=== PATIENT | female | born 1990 | race Caucasian/White ===

== ENCOUNTER → 2016-10-12 | Outpatient (CLI) | payer MEDICAID ==
[~2016-10-12] MED LIST: AC500T PO; CALC500T7 PO; PNV11TAB5 PO; RANI75TA21 PO
--- NOTE | 2016-10-12 16:22 | Diagnostic Imaging Report ---
INDICATION: Late care. FINDINGS: There is a single living intrauterine in cephalic presentation. Placenta is posterior and not low. CRISS is 16. heart rate is 153 beats for minute. measurements correspond to a gestational age of 22 weeks and 2 days. There are no gross anomalies seen. IMPRESSION: Single living intrauterine with estimated gestational age of 22 weeks 2 days +/- 2 weeks. Estimated date of delivery is 02/11/2017. Dictated by: Dictated on workstation # [id number]
== END ==
LOC: RAD 09:54
PROVIDERS: ATTEND Obstetrics & Gynecology
DX: O09.292 Supervision of pregnancy with other poor reproductive or obstetric history, second trimester (principal); Z72.0 Tobacco use; Z3A.22 22 weeks gestation of pregnancy
CPT/HCPCS: 76805

== ENCOUNTER → 2016-11-02 | Outpatient (CLI) | payer MEDICAID ==
[2016-11-02 12:47] LABS: BASOPHILS % (AUTO) 0 % (0-2); EOSINOPHILS # (AUTO) 0.1 10^3uL; EOSINOPHILS % (AUTO) 1 % (0-4); LYMPHOCYTES # (AUTO) 1.8 X10^3; MEAN CORPUSCULAR HEMOGLOBIN 30.6 PG (26.0-34.0); MEAN CORPUSCULAR HGB CONC 35.1 g/dL (31.0-37.0); MEAN CORPUSCULAR VOLUME 87 FL (80-100); MEAN PLATELET VOLUME 11.7 FL (6.0-9.5); MONOCYTES # (AUTO) 0.6 X10^3; MONOCYTES % (AUTO) 5 % (3-11); NEUTROPHILS # (AUTO) 8.1 X10^3; NEUTROPHILS % (AUTO) 76 % (51-67); PLATELET COUNT 138 10^3uL (150-450); WHITE BLOOD COUNT 10.66 10^3uL (4.0-11.0)
== END ==
LOC: LAB 10:50
PROVIDERS: ATTEND Obstetrics & Gynecology
DX: O09.292 Supervision of pregnancy with other poor reproductive or obstetric history, second trimester (principal); Z72.0 Tobacco use
CPT/HCPCS: 36415; 82947; 82950; 85025

== ENCOUNTER → 2016-11-15 | Outpatient (CLI) | payer MEDICAID | LOC: RAD 10:11 | PROVIDERS: ATTEND Obstetrics & Gynecology | DX: O09.293 Supervision of pregnancy with other poor reproductive or obstetric history, third trimester (principal); Z72.0 Tobacco use | CPT/HCPCS: 76805 ==

== ENCOUNTER 2016-12-14 19:49 | Outpatient (CLI) | payer MEDICAID ==
[~2016-12-14] VITALS: Ht 165.1 cm; Wt 80.0 kg
[2016-12-14 20:02] VITALS: BP 105/56
== END 2016-12-14 20:35 ==
LOC: EUOP 19:49 → OB 19:51 → EUOP 20:35
PROVIDERS: ATTEND Obstetrics & Gynecology
DX: O26.893 Other specified pregnancy related conditions, third trimester (principal); R10.84 Generalized abdominal pain; Z3A.30 30 weeks gestation of pregnancy
CPT/HCPCS: 99201

== ENCOUNTER → 2016-12-14 | Outpatient (CLI) | payer MEDICAID | LOC: EMS 19:50 | PROVIDERS: ATTEND Obstetrics & Gynecology | DX: O26.893 Other specified pregnancy related conditions, third trimester (principal); R10.13 Epigastric pain; R11.10 Vomiting, unspecified ==

== ENCOUNTER 2016-12-19 10:15 | Outpatient (CLI) | payer MEDICAID ==
[~2016-12-19] VITALS: Ht 165.1 cm; Wt 82.3 kg
== END 2016-12-19 12:05 | disposition home or self-care (01) ==
LOC: OBGOP 10:15 → OB 10:16 → OBGOP 12:05
PROVIDERS: ATTEND Obstetrics & Gynecology
DX: O09.293 Supervision of pregnancy with other poor reproductive or obstetric history, third trimester (principal); Z87.59 Personal history of other complications of pregnancy, childbirth and the puerperium; Z3A.31 31 weeks gestation of pregnancy
CPT/HCPCS: 59025; 76815

== ENCOUNTER 2016-12-26 10:51 | Outpatient (CLI) | payer MEDICAID ==
[~2016-12-26] VITALS: Ht 165.1 cm; Wt 81.6 kg
[2016-12-26 11:08] VITALS: BP 100/61
== END 2016-12-26 12:15 | disposition home or self-care (01) ==
LOC: EUOP 10:51 → OB 10:52 → EUOP 12:15
PROVIDERS: ATTEND Obstetrics & Gynecology
DX: Z34.83 Encounter for supervision of other normal pregnancy, third trimester (principal); Z3A.32 32 weeks gestation of pregnancy
CPT/HCPCS: 59025

== ENCOUNTER 2017-01-02 10:25 | Outpatient (CLI) | payer MEDICAID ==
[~2017-01-02] VITALS: Ht 165.1 cm; Wt 82.1 kg
[2017-01-02 11:00] VITALS: BP 118/59
== END 2017-01-02 11:00 | disposition home or self-care (01) ==
LOC: EUOP 10:25 → OB 10:26 → EUOP 11:00
PROVIDERS: ATTEND Obstetrics & Gynecology
DX: O09.293 Supervision of pregnancy with other poor reproductive or obstetric history, third trimester (principal); Z87.59 Personal history of other complications of pregnancy, childbirth and the puerperium; Z3A.33 33 weeks gestation of pregnancy
CPT/HCPCS: 59025

== ENCOUNTER → 2017-01-09 | Outpatient (CLI) | payer MEDICAID ==
--- NOTE | 2017-01-09 13:49 | Diagnostic Imaging Report ---
INDICATION: History of stillbirth. COMPARISON: 12/19/2016. Biophysical Profile Score: Movement: 2 Breathin Tone: 2 Fluid: 2 Total: 05/08 Heart Rate: 149 BPM Presentation is cephalic. Placenta is fundal. The CRISS was incompletely evaluated. IMPRESSION: Normal Biophysical Profile Score. Dictated by: Dictated on workstation # [id number]
== END ==
LOC: RAD 11:27
PROVIDERS: ATTEND Obstetrics & Gynecology
DX: Z87.59 Personal history of other complications of pregnancy, childbirth and the puerperium (principal)
CPT/HCPCS: 76815

== ENCOUNTER → 2017-01-16 | Outpatient (CLI) | payer MEDICAID ==
--- NOTE | 2017-01-16 14:04 | Diagnostic Imaging Report ---
INDICATION: History of stillbirth. Biophysical profile. FINDINGS: Real-time imaging shows good breathing with good gross body movement and normal tone. Amniotic fluid index is normal. The amniotic fluid index is 14 cm. heartbeat is 169 beats per minute during the exam. The placenta is fundal. The cervical length is 2.6 cm. IMPRESSION: Normal biophysical profile. Dictated by: Dictated on workstation # [id number]
== END ==
LOC: RAD 11:29
PROVIDERS: ATTEND Obstetrics & Gynecology
DX: Z87.59 Personal history of other complications of pregnancy, childbirth and the puerperium (principal); Z33.1 Pregnant state, incidental
CPT/HCPCS: 76805; 87653

== ENCOUNTER 2017-01-19 12:55 | Outpatient (CLI) | payer MEDICAID ==
[~2017-01-19] VITALS: Ht 165.1 cm; Wt 84.8 kg
[2017-01-19 13:53] LABS: BILIRUBIN,URINE Negative (Negative); CLARITY,URINE Clear; COLOR,URINE Yellow; GLUCOSE, URINE (UA) Negative (Negative); LEUKOCYTE ESTERASE ,URINE Negative (Negative); PH,URINE 6.5 (5.0 - 8.0); UROBILINOGEN,URINE 0.2 mg/dL (0.2-1.0)
[2017-01-19 14:00] VITALS: BP 109/67
--- NOTE | 2017-01-19 17:01 | Diagnostic Imaging Report ---
INDICATION: assessment. FINDINGS: PROCEDURE: OB ultrasound, limited, for biophysical profile scoring Single fetus is identified, currently in cephalic presentation. The cervical length is about 3.3 cm. No previa is identified. No abruption was identified. biophysical profile scoring demonstrated normal scoring for breathing motion, gross body movement, tone, and amniotic fluid. IMPRESSION: biophysical profile score of 8 out of 8. Dictated by: Dictated on workstation # [id number]
== END 2017-01-19 14:40 | disposition home or self-care (01) ==
LOC: OBGOP 12:55 → OB 12:57 → OBGOP 14:40
PROVIDERS: ATTEND Obstetrics & Gynecology
DX: O26.853 Spotting complicating pregnancy, third trimester (principal); Z3A.35 35 weeks gestation of pregnancy
CPT/HCPCS: 76819; 81003; G0463; 99202

== ENCOUNTER → 2017-01-24 | Outpatient (CLI) | payer MEDICAID ==
--- NOTE | 2017-01-25 09:11 | Diagnostic Imaging Report ---
US OB PREG, LATE (14-40 WKS) Technique: Multi-projectional grayscale and color Doppler imaging of the gravid uterus was performed for biophysical profile examination Indication: Biophysical profile. History of stillbirth. Comparison: 01/19/2017 Findings: biophysical profile scoring demonstrated normal scoring for breathing motion, gross body movement, tone and amniotic fluid. The CRISS is 14.5 cm Single live intrauterine with a heart rate of 152 beats per minute. There appears to be abnormal thickening of the right and left ventricular uribe. Additionally, there is likely a ventricular septal defect and possible overriding aorta. A right ventricular outflow track pulmonary trunk are not well visualized. Impression: 1. 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 This finding was called to Dr. Funk at 4:25 PM on 01/24/2017. 2. Normal biophysical profile. Dictated by: Dictated on workstation # [id number]
== END ==
LOC: RAD 15:05
PROVIDERS: ATTEND Obstetrics & Gynecology
DX: O09.893 Supervision of other high risk pregnancies, third trimester (principal); Z87.59 Personal history of other complications of pregnancy, childbirth and the puerperium
CPT/HCPCS: 76805